=== PATIENT | female | born 2000 ===

== ENCOUNTER 2022-06-06 14:13 | Outpatient (CLI) | payer OTHER, SELFPAY ==
[2022-06-06 14:52] LABS: Basophils Percent Auto 0.4 % (0.2-1.2); Eosinophils Absolute Auto 0.1 K/mm3 (0-0.3); Eosinophils Percent Auto 1.4 % (0-4.4); Hematocrit 38.8 % (37.0-47.0); Hemoglobin 13.1 g/dL (12.0-15.0); Immature Granulocyte Absolute 0.05 K/mm3 (0.00-0.031); Immature Granulocyte Percent A 0.5 % (0-0.5); Lymphocytes Absolute Auto 2.36 K/mm3 (0.9-3.2); Lymphocytes Percent Auto 24.2 % (18.3-44.2); Mean Corpuscular HGB Conc 33.8 g/dl (32-36); Mean Corpuscular Hemoglobin 27.6 pg (26-34); Mean Corpuscular Volume 81.7 fl (80-100); Mean Platelet Volume 10.5 fl (7.4-10.4); Monocytes Absolute Auto 0.7 K/mm3 (0.1-0.6); Monocytes Percent Auto 7.1 % (2.6-8.5); Neutrophils Absolute Auto 6.5 K/mm3 (1.3-6.7); Neutrophils Percent Auto 66.4 % (45.5-73.1); Platelet Count Result 314 k/mm3 (150-375); Red Blood Count 4.75 M/mm3 (4.2-5.4); Red Cell Distribution Width 14.2 % (11.5-14.5); White Blood Count 9.8 K/mm3 (4.5-10.0)
[2022-06-06 15:41] LABS: HIV 1/2 Ab P24 Ag Result Negative (Negative)
[2022-06-06 17:36] LABS: Hepatitis B Surface Antigen Negative (Negative)
[2022-06-07 10:41] LABS: Rapid Plasma Reagin Non-Reactive (NonReactive)
[2022-06-10 12:50] LABS: Varicella IgG Antibody <135.00 Index (>=165.00)
[2022-06-15 08:37] LABS: CF Result NEGATIVE (NEGATIVE); Ethnicity HISPANIC
== END 2022-06-06 14:14 | disposition home or self-care (01) ==
LOC: ANHLAB 14:16
PROVIDERS: PCP Student in an Organized Health Care Education/Training Program; Visit Provider Student in an Organized Health Care Education/Training Program
DX: N94.89 Other specified conditions associated with female genital organs and menstrual cycle (principal)
CPT/HCPCS: 36415; 81220; 84702; 85025; 86592; 86644; 86703; 86747; 86787; 86850; 86900; 86901; 87077; 87086; 87088; 87186; 87340; G0432